=== PATIENT | female | born 1995 | race Caucasian/White ===

== ENCOUNTER 2017-02-02 13:18 | Emergency (ER) | payer BC, OTHER ==
[~2017-02-02] VITALS: Ht 160 cm; Wt 83.0 kg
[2017-02-02 13:19] VITALS: BP 133/90
[2017-02-02] MEDS ORDERED: AUGM875T27 PO (14:38)
== END 2017-02-02 14:50 | disposition home or self-care (01) ==
LOC: M ED 14:33
DX: L03.011 Cellulitis of right finger (principal); T23.021A Burn of unspecified degree of single right finger (nail) except thumb, initial encounter; Y92.89 Other specified places as the place of occurrence of the external cause; Y93.89 Activity, other specified; X58.XXXA Exposure to other specified factors, initial encounter; Y99.9 Unspecified external cause status

== ENCOUNTER 2017-05-29 22:27 | Day surgery (SDC) | payer OTHER, SELFPAY ==
[~2017-05-29] VITALS: Ht 160 cm; Wt 61.3 kg
[~2017-05-29 22:27] MED LIST: AUGM875T28 PO
[2017-05-30] VITALS (7 sets, daily range): BP systolic 97–124; BP diastolic 61–78
[2017-05-30 00:24] LABS: BASO # 0.1 K/mm3 (0.0-0.2); BASO % 0.3 % (0.0-1.0); EOS # 0.3 K/mm3 (0.0-0.50); EOS % 1.7 % (0.0-3.0); LARGE UNSTAINED CELL # 0.1 K/mm3 (0.0-0.4); LARGE UNSTAINED CELL % 0.5 % (0.0-4.0); LYMPH # 2.2 K/mm3 (1.5-6.5); LYMPH % 11.4 % (24.0-44.0); MEAN CORPUSCULAR HEMOGLOBIN 29.7 pg (27.0-33.0); MEAN CORPUSCULAR HGB CONC 34.4 g/dl (32.0-36.5); MEAN CORPUSCULAR VOLUME 86.5 fl (80.0-96.0); MONO # 0.8 K/mm3 (0.0-0.8); MONO % 4.1 % (0.0-5.0); NEUTROPHILS # 15.2 K/mm3 (1.8-7.7); PLATELET COUNT, AUTOMATED 229 k/mm3 (150-450); RED CELL DISTRIBUTION WIDTH 11.9 % (11.5-14.5); WHITE BLOOD COUNT 18.5 K/mm3 (4.0-10.0)
[2017-05-30 00:47] LABS: CONTROL LINE HCG INT CTR LINE PRESENT
[2017-05-30 00:55] LABS: ALBUMIN 4.1 GM/DL (3.2-5.2); ALBUMIN/GLOBULIN RATIO 0.98 (1.00-1.93); ALKALINE PHOSPHATASE 65 U/L (45-117); ALT/SGPT 48 U/L (12-78); AMYLASE 36 U/L (25-115); ANION GAP 4 MEQ/L (8-16); AST/SGOT 26 U/L (15-37); BILIRUBIN,DIRECT < 0.1 MG/DL (0.0-0.2); BILIRUBIN,TOTAL 0.3 MG/DL (0.2-1.0); BLOOD UREA NITROGEN 8 MG/DL (7-18); CALCIUM LEVEL 9.1 MG/DL (8.5-10.1); CARBON DIOXIDE LEVEL 28 MEQ/L (21-32); CHLORIDE LEVEL 108 MEQ/L (98-107); CREATININE FOR GFR 0.66 MG/DL (0.55-1.02); GLOMERULAR FILTRATION RATE > 60.0 (>60); GLUCOSE, FASTING 97 MG/DL (70-105); POTASSIUM SERUM 3.4 MEQ/L (3.5-5.1); SODIUM LEVEL 140 MEQ/L (136-145); TOTAL PROTEIN 8.3 GM/DL (6.4-8.2)
[2017-05-30] MEDS ORDERED: GASTROGRAFIN SOLUTION 30ML (Q9963) As Ordered ONE (01:33)
[2017-05-30] MEDS ORDERED: GASTROGRAFIN SOLUTION 30ML PO ONE (01:35)
[2017-05-30] MEDS ORDERED: GASTROGRAFIN SOLUTION 30ML (Q9963) PO ONE (02:05)
--- NOTE | 2017-05-30 04:30 | REPUSA ---
CLINICAL HISTORY: Abdominal pain. TECHNIQUE: Multiple axial, sagittal and coronal CT images were obtained through the abdomen and pelvi s without administration of IV contrast material. Oral contrast was given. COMMENTS: The appendix is enlarged measuring 1.2 cm. Thickened appendix with fat stranding. Enlarged right ovary. The liver is of uniform attenuation without mass or defect. There is no intra or extrahepatic biliary ductal dilatation. The spleen is normal. The gallbladder is within normal limits. The pancreas is of normal contour and attenuation characteristics. There is no evidence of adrenal mass. The kidneys are normal in size, shape and configuration. No renal or ureteral calculi are identified. There is no hydroureter or hydronephrosis. There is no bowel wall thickening. No evidence for small or large bowel obstruction. There is no evid ence of abdominal ascites or lymphadenopathy. There is no evidence of intrinsic or extrinsic bladder mass. There is no pelvic ascites or lymphadeno ladi. Images of the lung bases show no evidence of pleural or parenchymal mass. There are no pleural effusi ons. The bony structures are free of lytic or blastic lesions. IMPRESSION: Acute appendicitis. No perforation or abscess formation. Enlarged right ovary. No associated acute changes. Thank you for your kind referral of this patient.
[2017-05-30] MEDS ORDERED: NS 1,000 ML IV ONE ×2 (04:45)
[2017-05-30] MEDS ORDERED: PIPERACILLIN/TAZOBACTAM SOD 3.375 GM in D5W MINI-BAG PLUS 50 ML IV ONE ×2 (04:45→11:00)
[2017-05-30] MEDS ORDERED: BUPIVACAINE HCL 0.25% 30 ML VIAL As Ordered ONE (10:41)
[2017-05-30] MEDS ORDERED: BUPIVACAINE/EPIN 0.25% 30 ML VIAL As Ordered ONE (10:42)
[2017-05-30] MEDS ORDERED: ZOSYN 3.375 GM VIAL (J2543) As Ordered ONE (10:51)
[2017-05-30] MEDS ORDERED: fentaNYL 250 MCG/5 ML INJECTION (J3010) As Ordered ONE (10:52)
[2017-05-30] MEDS ORDERED: LIDOCAINE 2% INJ 100 MG/5 ML SDV (FOR ANES.) As Ordered ONE (10:53)
[2017-05-30] MEDS ORDERED: MIDAZOLAM INJ 2 MG/2 ML VIAL (J2250) As Ordered ONE (10:53)
[2017-05-30] MEDS ORDERED: ROCURONIUM BROMIDE 50 MG/5 ML VIAL/SYRINGE As Ordered ONE (10:53)
[2017-05-30] MEDS ORDERED: PROPOFOL 200 MG/20 ML VIAL As Ordered ONE (10:53)
[2017-05-30] MEDS ORDERED: dexameTHASONE 4 MG/ML 1ML VIAL (J1100) As Ordered ONE (11:29)
[2017-05-30] MEDS ORDERED: GLYCOPYRROLATE INJ 0.2 MG/ML 2 ML VIAL As Ordered ONE (11:32)
[2017-05-30] MEDS ORDERED: NEOSTIGMINE 1MG/ML 5 ML SYRINGE (J2710) As Ordered ONE (11:32)
[2017-05-30] MEDS ORDERED: ONDANSETRON 4MG/2ML VIAL (J2405) As Ordered ONE (11:32)
[2017-05-30] MEDS ORDERED: KETOROLAC 60 MG/2 ML VIAL (J1885) As Ordered ONE (11:33)
[2017-05-30] MEDS ORDERED: fentaNYL 100 MCG/2 ML INJECTION (J3010) IV PRN (12:15)
[2017-05-30] MEDS ORDERED: MOM 30ML SUSPENSION UDC PO PRN (12:15)
[2017-05-30] MEDS ORDERED: ACETAMINOPHEN TAB 650MG DOSE (2X325MG) PO PRN (12:15)
[2017-05-30] MEDS ORDERED: LR 1,000 ML IV SCH (12:15)
[2017-05-30] MEDS ORDERED: ONDANSETRON 4MG/2ML VIAL (J2405) IV PRN ×2 (12:15)
[2017-05-30] MEDS ORDERED: MORPHINE 2 MG/ML 1ML SYRINGE IV PRN (12:15)
[2017-05-30] MEDS: LR 1,000 ML IV SCH ×2 (13:30→22:42)
[2017-05-30] MEDS: NORCO, ANEXSIA 5/325MG TABLET (HYDROcodone/ACETAMINOPHEN) PO PRN ×2 (16:43→22:49)
[2017-05-30] MEDS: PIPERACILLIN/TAZOBACTAM SOD 3.375 GM in D5W MINI-BAG PLUS 50 ML IV SCH ×2 (17:26→22:48)
[2017-05-30] MEDS ORDERED: KETOROLAC 30 MG/ML VIAL (J1885) IV PRN (17:30)
[2017-05-30] MEDS ORDERED: SLF 3 ML SYR IV PRN (18:45)
[2017-05-30] MEDS: SENOKOT S TAB PO SCH (20:57)
[2017-05-30] MEDS: SLF 3 ML SYR IV SCH (22:00)
[2017-05-31] VITALS: BP 99/59
[2017-05-31 04:00] VITALS: BP 98/58
[2017-05-31] MEDS: PIPERACILLIN/TAZOBACTAM SOD 3.375 GM in D5W MINI-BAG PLUS 50 ML IV SCH (04:32)
[2017-05-31] MEDS: LR 1,000 ML IV SCH (05:03)
[2017-05-31] MEDS: SLF 3 ML SYR IV SCH (06:00)
[2017-05-31 06:43] LABS: MEAN CORPUSCULAR HEMOGLOBIN 29.9 pg (27.0-33.0); MEAN CORPUSCULAR HGB CONC 34.5 g/dl (32.0-36.5); MEAN CORPUSCULAR VOLUME 86.7 fl (80.0-96.0); RED CELL DISTRIBUTION WIDTH 11.6 % (11.5-14.5); WHITE BLOOD COUNT 7.3 K/mm3 (4.0-10.0)
[2017-05-31 07:20] LABS: ANION GAP 9 MEQ/L (8-16); BLOOD UREA NITROGEN 5 MG/DL (7-18); CALCIUM LEVEL 8.5 MG/DL (8.5-10.1); CARBON DIOXIDE LEVEL 23 MEQ/L (21-32); CHLORIDE LEVEL 110 MEQ/L (98-107); GLOMERULAR FILTRATION RATE > 60.0 (>60); GLUCOSE, FASTING 142 MG/DL (70-105); MAGNESIUM LEVEL 2.1 MG/DL (1.8-2.4); POTASSIUM SERUM 3.6 MEQ/L (3.5-5.1); SODIUM LEVEL 142 MEQ/L (136-145)
[2017-05-31 07:30] VITALS: BP 105/70
[2017-05-31] MEDS ORDERED: SENN1TAB2 PO (08:00)
[2017-05-31] MEDS ORDERED: NORCOTAB PO (08:00)
[2017-05-31] MEDS: SENOKOT S TAB PO SCH (09:00)
--- NOTE | 2017-05-31 11:31 | CR ---
DATE OF CONSULTATION: 05/30/2017 REASON FOR CONSULTATION: Abdominal pain. HISTORY OF PRESENT ILLNESS: The patient is a 22-year-old female who presents with right lower quadrant abdominal pain that started suddenly last evening. She came into the emergency room this morning. Vitals were stable on admission other than a slightly elevated pulse up to 107. She had laboratories of a white count elevated to 18.5 and that was followed up with a CT scan that showed signs and symptoms consistent with acute appendicitis. Therefore, I was called to evaluate. PHYSICAL EXAMINATION: On exam, she has extremely tender in the right lower quadrant. She has had some nausea. No vomiting. No fevers or chills. No change in bowel movements. No problems urinating. The pain started off sort of generalized yesterday afternoon and then localized towards the right lower quadrant in the evening and has not been getting any better. ALLERGIES: None. HOME MEDICATIONS: None. PAST MEDICAL HISTORY: Negative. PAST SURGICAL HISTORY: Negative. SOCIAL HISTORY: Denies any drug, alcohol, tobacco usage. FAMILY HISTORY: Noncontributory. REVIEW OF SYSTEMS: Pertinent positives and negatives as stated in history of present illness. PHYSICAL EXAMINATION: GENERAL: Patient is alert and oriented times three. No acute distress. VITAL SIGNS: Temperature 97.3, pulse 121, respirations 16, blood pressure 123/74, pulse ox 96% on 2 liters nasal cannula. HEENT: Pupils equal round react to light accommodation. HEART: S1, S2. Regular rate and rhythm. LUNGS: Clear to auscultation bilaterally. ABDOMEN: Soft and tender to palpation in the right lower quadrant. Localized guarding. No signs of ventral hernias. EXTREMITIES: No clubbing, cyanosis or edema. LABORATORY DATA: White count 18.5, hemoglobin 15.2, platelets 229, potassium 3.4, creatinine 0.66. IMAGING STUDIES: CT of the abdomen and pelvis with oral contrast shows acute appendicitis. No signs of perforation or abscess. The appendix is dilated at 1.2 cm and thickened with some surrounding fat stranding. ASSESSMENT AND PLAN: The patient is 22-year-old female who presents with signs and symptoms consistent with acute appendicitis. Recommendation is to proceed with laparoscopic, possible open appendectomy. Risks and benefits of the procedure, not limited to, but including bleeding, infection, hernia formation, damage to surrounding structures and need for further surgery were discussed in detail with the patient. Informed consent was obtained and the procedure was planned. Postoperatively, she will be kept in the hospital overnight due to the leukocytosis. She will be kept on IV antibiotics and IV fluids. She can have a regular diet. As long as her white count shows some improvement and she is afebrile overnight, she will be discharged home first thing in the morning.
--- NOTE | 2017-06-01 05:36 | RO ---
DATE OF PROCEDURE: 05/30/2017 PREOPERATIVE DIAGNOSIS: Acute appendicitis. POSTOPERATIVE DIAGNOSIS: Acute appendicitis. PROCEDURE: Laparoscopic appendectomy. SURGEON: Buck Olmstead DO MUSEUM EDUCATOR: None. ANESTHESIA: General. ESTIMATED BLOOD LOSS: 5. COMPLICATION: None. INDICATIONS FOR PROCEDURE: The patient is a 22-year-old female who presents with signs and symptoms consistent with acute appendicitis. Recommendation to proceed with laparoscopic, possible open appendectomy. Risks and benefits of procedure not limited but including bleeding, infection, hernia formation, damage structure, need for further surgery were discussed in detail with the patient. Informed was obtained. Procedure was planned. DESCRIPTION OF PROCEDURE: Patient brought back to operating room #3. After sufficient sedation, the abdomen was sterilely prepped and draped. Next, time-out was done to confirm proper patient and proper procedure. Next, a 5 mm incision made in left lower quadrant. Veress needle was inserted and the abdomen was insufflated to 50 mmHg. Next, Veress needle was removed. A 5 mm Optiview port was used to gain access to the abdomen. Once the abdomen was entered, an 8 mm port was placed infraumbilically and another 5 mm port suprapubically in the midline. The omentum was elevated off of the cecum. The appendix was easily identified and elevated up in the air. The mesoappendix was then taken down using the Enseal all the way to the base of the appendix. The base the appendix was then ligated with two PDS Endoloops and then it was amputated using the Enseal. The appendix was then brought out through the umbilical 8 mm port using a 5 mm EndoCatch bag. The right lower quadrant was examined to confirm hemostasis. Omentum was placed back over top of the area.. Abdomen was desufflated. Skin incisions were closed with #4-0 Vicryl subcuticular sutures. The abdomen was cleaned and dried. Steri-Strips, 4 x 4 and tape were applied, thus ending procedure.
== END 2017-05-31 09:30 | disposition home or self-care (01) ==
LOC: M ED 22:27 → M SDC 05-30 07:30 → M PED 05-30 12:40 → M SDC 05-31 09:30
PROVIDERS: ATTEND Surgery
DX: K35.89 Other acute appendicitis (principal); D72.829 Elevated white blood cell count, unspecified
CPT/HCPCS: 36415; 44970; 74176; 80048; 80076; 81001; 82150; 83690; 83735; 84703; 85025; 85027; 87086; 88304; 96365; 96366; 99284; J1100; J1885; J2250; J2405; J2543; J2710; J3010; Q9963

== ENCOUNTER 2018-05-05 20:09 | Emergency (ER) | payer OTHER, SELFPAY ==
[2018-05-05] MEDS: PENICILLIN V POTASSIUM 500 MG TAB PO (22:23)
[2018-05-05] MEDS: IBUPROFEN 600 MG TAB PO (22:24)
== END 2018-05-05 22:40 | disposition home or self-care (01) ==
LOC: M ED 20:09
DX: K04.7 Periapical abscess without sinus (principal)
CPT/HCPCS: 99283

== ENCOUNTER 2018-07-08 21:31 | Emergency (ER) | payer OTHER ==
[2018-07-08] MEDS: TETRACAINE 0.5% OPHTH SOLN 4ML OD (22:30)
[2018-07-08] MEDS: LISSAMINE GREEN OPHTH 1.5 MG STRIP OD (22:30)
== END 2018-07-08 22:56 | disposition home or self-care (01) ==
LOC: M ED 21:31
DX: H10.9 Unspecified conjunctivitis (principal)
CPT/HCPCS: 99282

== ENCOUNTER 2018-12-09 00:10 | Emergency (ER) | payer OTHER ==
[~2018-12-09] VITALS: Ht 160 cm; Wt 61.4 kg
[~2018-12-09 00:10] MED LIST changes: +CIPR0.3S OD; +IBUP-1022 PO; +NORCOTAB PO; +PENI500T PO; +SENN1TAB2 PO
[2018-12-09 00:11] VITALS: BP 130/85
[2018-12-09] MEDS ORDERED: AMOX875T PO (00:40)
[2018-12-09] MEDS ORDERED: IBUPROFEN 600 MG TAB PO ONE (00:45)
[2018-12-09] MEDS ORDERED: AMOXICILLIN 500 MG CAP PO ONE (00:45)
== END 2018-12-09 00:48 | disposition home or self-care (01) ==
LOC: M ED 00:10
DX: H66.92 Otitis media, unspecified, left ear (principal)

== ENCOUNTER → 2020-08-17 | Outpatient (CLI) | payer OTHER ==
[~2020-08-17] MED LIST changes: +AMOX875T PO; -CIPR0.3S OD; +CIPR0.3S6 OD; +HYDR-3715 PO; -NORCOTAB PO; +SENN-53 PO; -SENN1TAB2 PO
[2020-08-17 17:34] LABS: BASO # 0.1 10^3/uL (0.0-0.2); BASO % 0.6 % (0.0-1.0); EOS # 0.1 10^3/uL (0.0-0.5); EOS % 1.3 % (0.0-3.0); HEMATOCRIT 41.6 % (36.0-47.0); HEMOGLOBIN 13.9 g/dl (12.0-15.5); MEAN CORPUSCULAR HEMOGLOBIN 29.6 pg (27.0-33.0); MEAN CORPUSCULAR HGB CONC 33.4 g/dl (32.0-36.5); MEAN CORPUSCULAR VOLUME 88.7 fl (80.0-96.0); MONO # 0.6 10^3/uL (0.0-0.8); NEUTROPHILS # 4.6 10^3/uL (1.5-8.5); PLATELET COUNT, AUTOMATED 245 10^3/uL (150-450); RED BLOOD COUNT 4.69 10^6/uL (4.00-5.40); WHITE BLOOD COUNT 8.3 10^3/uL (4.0-10.0)
--- NOTE | 2020-08-17 17:50 | ECGEPIP ---
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
[2020-08-17 17:57] LABS: ALBUMIN 3.9 GM/DL (3.2-5.2); ALT/SGPT 41 U/L (12-78); BILIRUBIN,TOTAL 0.2 MG/DL (0.2-1.0); BLOOD UREA NITROGEN 11 MG/DL (7-18); CALCIUM LEVEL 8.9 MG/DL (8.5-10.1); CARBON DIOXIDE LEVEL 29 MEQ/L (21-32); CHLORIDE LEVEL 105 MEQ/L (98-107); CHOLESTEROL LEVEL 212 MG/DL (<200); CHOLESTEROL RISK RATIO 6.235 (<5); CREATININE FOR GFR 0.61 MG/DL (0.55-1.30); FREE THYROXINE INDEX 2.5 % (1.3-4.8); GLOMERULAR FILTRATION RATE > 60.0 (>60); GLUCOSE, FASTING 103 MG/DL (70-100); HDL CHOLESTEROL 34 MG/DL (>40); NON-HDL-C 178 MG/DL; POTASSIUM SERUM 4.2 MEQ/L (3.5-5.1); SODIUM LEVEL 138 MEQ/L (136-145); T UPTAKE 29 % (30-39); THYROXINE (T4) 8.7 UG/DL (4.5-12.0); TOTAL PROTEIN 7.1 GM/DL (6.4-8.2); TRIGLYCERIDES LEVEL 401 MG/DL (<150)
[2020-08-17 17:58] LABS: TOTAL 25(OH) VITAMIN D 9.6 NG/ML (30.0-100.0); VITAMIN B12 LEVEL 498 PG/ML (247-911)
[2020-08-17 18:20] LABS: HEMOGLOBIN A1c 5.2 %
== END ==
LOC: M LAB 16:52
PROVIDERS: ATTEND Nurse Practitioner Psychiatric/Mental Health
DX: F43.12 Post-traumatic stress disorder, chronic (principal); F41.9 Anxiety disorder, unspecified; F33.9 Major depressive disorder, recurrent, unspecified

== ENCOUNTER → 2021-06-18 | Outpatient (REF) ==
--- NOTE | 2021-06-19 05:42 | REP ---
INDICATION: SCOLIOSIS COMPARISON: None. TECHNIQUE: AP, lateral, coned-down views of the lumbar spine. FINDINGS: Levoconvex scoliosis through the lumbar spine of approximately 20 degrees as measured from the superior endplate of L1 to the superior endplate of L5. Sagittal view demonstrates straightening of normal lordosis. Disc spaces are relatively symmetric and maintained. No evidence for acute fracture/compression injury or subluxation. IMPRESSION: 1. No acute fracture / compression injury or subluxation. 2. Levoconvex scoliosis. <Electronically signed by Yakov Arriola > 06/19/21 [id number]
== END ==
LOC: M PLAIMG 13:43
PROVIDERS: ATTEND Internal Medicine
DX: M41.9 Scoliosis, unspecified (principal)

== ENCOUNTER → 2022-07-08 | Outpatient (CLI) | payer OTHER ==
[2022-07-08 17:23] LABS: HCG, SERUM QUALITATIVE POSITIVE (NEGATIVE)
[2022-07-08 17:38] LABS: HCG, SERUM QUANTITATIVE 448 MIU/ML
== END ==
LOC: M WUC 11:24
PROVIDERS: ATTEND Physician Assistant
DX: N91.2 Amenorrhea, unspecified (principal)

== ENCOUNTER 2022-07-29 12:42 | Emergency (ER) | payer OTHER ==
[~2022-07-29] VITALS: Ht 160 cm; Wt 58.2 kg
[2022-07-29 14:23] LABS: BASO # 0.1 10^3/uL (0.0-0.2); BASO % 0.6 % (0.0-1.0); EOS # 0.1 10^3/uL (0.0-0.5); EOS % 1.5 % (0.0-3.0); HEMATOCRIT 41.1 % (36.0-47.0); HEMOGLOBIN 13.6 g/dl (12.0-15.5); LYMPH # 2.8 10^3/uL (1.5-5.0); LYMPH % 34.2 % (24.0-44.0); MEAN CORPUSCULAR HEMOGLOBIN 29.3 pg (27.0-33.0); MEAN CORPUSCULAR HGB CONC 33.1 g/dl (32.0-36.5); MEAN CORPUSCULAR VOLUME 88.6 fl (80.0-96.0); MONO # 0.6 10^3/uL (0.0-0.8); MONO % 7.4 % (2.0-8.0); NEUTROPHILS # 4.6 10^3/uL (1.5-8.5); NEUTROPHILS % 56.1 % (36.0-66.0); PLATELET COUNT, AUTOMATED 242 10^3/uL (150-450); RED BLOOD COUNT 4.64 10^6/uL (4.00-5.40); WHITE BLOOD COUNT 8.1 10^3/uL (4.0-10.0)
[2022-07-29 14:56] LABS: HCG, SERUM QUALITATIVE POSITIVE (NEGATIVE)
[2022-07-29 15:06] LABS: ALBUMIN 3.7 GM/DL (3.2-5.2); ALT/SGPT 30 U/L (12-78); BILIRUBIN,DIRECT < 0.1 MG/DL (0.0-0.2); BILIRUBIN,TOTAL 0.2 MG/DL (0.2-1.0); BLOOD UREA NITROGEN 6 MG/DL (7-18); CARBON DIOXIDE LEVEL 24 MEQ/L (21-32); CHLORIDE LEVEL 109 MEQ/L (98-107); CREATININE FOR GFR 0.48 MG/DL (0.55-1.30); GLOMERULAR FILTRATION RATE > 60.0 (>60); GLUCOSE, FASTING 86 MG/DL (70-100); LIPASE 78 U/L (73-393); POTASSIUM SERUM 4.1 MEQ/L (3.5-5.1); SODIUM LEVEL 138 MEQ/L (136-145); TOTAL PROTEIN 6.9 GM/DL (6.4-8.2)
[2022-07-29 15:45] LABS: HCG, SERUM QUANTITATIVE 44224 MIU/ML
[2022-07-29 16:50] VITALS: BP 119/62
== END 2022-07-29 17:09 | disposition home or self-care (01) ==
LOC: M ED 12:42
DX: O26.891 Other specified pregnancy related conditions, first trimester (principal); R10.2 Pelvic and perineal pain; F17.200 Nicotine dependence, unspecified, uncomplicated; Z3A.01 Less than 8 weeks gestation of pregnancy

== ENCOUNTER → 2022-09-10 | Outpatient (CLI) | payer OTHER ==
[2022-09-10 15:45] LABS: HEMATOCRIT 34.5 % (36.0-47.0); HEMOGLOBIN 11.8 g/dl (12.0-15.5); MEAN CORPUSCULAR HEMOGLOBIN 29.6 pg (27.0-33.0); MEAN CORPUSCULAR HGB CONC 34.2 g/dl (32.0-36.5); MEAN CORPUSCULAR VOLUME 86.7 fl (80.0-96.0); PLATELET COUNT, AUTOMATED 221 10^3/uL (150-450); RED BLOOD COUNT 3.98 10^6/uL (4.00-5.40)
[2022-09-10 17:04] LABS: GC DNA AMPLIFICATION NEGATIVE (NEGATIVE)
[2022-09-10 18:41] LABS: HEPATITIS C VIRUS ABY INDEX 0.1 INDEX (<0.8); HIV 1&2 SCREEN CENTAUR NEGATIVE (NEGATIVE)
== END ==
LOC: M PLALAB 12:01
PROVIDERS: ATTEND Specialist
DX: Z34.81 Encounter for supervision of other normal pregnancy, first trimester (principal); Z3A.00 Weeks of gestation of pregnancy not specified

== ENCOUNTER → 2022-10-02 | Outpatient (CLI) | payer OTHER | LOC: M PLALAB 12:04 | PROVIDERS: ATTEND Advanced Practice Midwife | DX: Z36.0 Encounter for antenatal screening for chromosomal anomalies (principal) ==

== ENCOUNTER → 2022-12-04 | Outpatient (CLI) | payer OTHER ==
[2022-12-04 15:34] LABS: HEMOGLOBIN 11.2 g/dl (12.0-15.5); MEAN CORPUSCULAR HEMOGLOBIN 31.1 pg (27.0-33.0); MEAN CORPUSCULAR HGB CONC 32.9 g/dl (32.0-36.5); MEAN CORPUSCULAR VOLUME 94.4 fl (80.0-96.0); PLATELET COUNT, AUTOMATED 184 10^3/uL (150-450)
[2022-12-04 16:55] LABS: GC DNA AMPLIFICATION NEGATIVE (NEGATIVE)
== END ==
LOC: M PLALAB 13:32
PROVIDERS: ATTEND Specialist
DX: Z34.02 Encounter for supervision of normal first pregnancy, second trimester (principal); Z3A.00 Weeks of gestation of pregnancy not specified

== ENCOUNTER → 2022-12-26 | Outpatient (CLI) | payer OTHER | LOC: M WHC 09:02 | PROVIDERS: ATTEND Advanced Practice Midwife | DX: O44.20 Partial placenta previa NOS or without hemorrhage, unspecified trimester (principal); Z3A.30 30 weeks gestation of pregnancy ==

== ENCOUNTER → 2023-02-05 | Outpatient (REF) | payer OTHER ==
[~2023-02-05] MED LIST changes: +CIPR0.3S37 OD; -CIPR0.3S6 OD
== END ==
LOC: M PLALAB 10:50
PROVIDERS: ATTEND Advanced Practice Midwife
DX: Z36.85 Encounter for antenatal screening for Streptococcus B (principal)

== ENCOUNTER 2023-03-11 20:30 | Inpatient (IN) | payer OTHER ==
[~2023-03-11] VITALS: Ht 160 cm; Wt 72.1 kg
[2023-03-11] MEDS ORDERED: METHYLERGONOVINE MALEATE 0.2MG/ML 1ML VIAL IM PRN (20:40)
[2023-03-11] MEDS ORDERED: LIDOCAINE 1% MDV 20ML VIAL INFIL PRN (20:40)
[2023-03-11] MEDS ORDERED: OXYTOCIN INJ 10UNITS/ML 1ML VIAL IM PRN (20:40)
[2023-03-11] MEDS ORDERED: CARBOPROST TROMETHAMINE 250 MCG/ML AMP IM PRN (20:40)
[2023-03-11] MEDS ORDERED: TRANEXAMIC ACID INJection 1,000 MG in NS 100 ML IV PRN (20:40)
[2023-03-11] MEDS ORDERED: OXYTOCIN DRIP 30 UNITS in IV 1 EA IV PRN ×4 (20:40)
[2023-03-11 21:00] VITALS: BP 137/85
[2023-03-11 21:39] VITALS: BP 132/87
[2023-03-11] MEDS: miSOPROStol 50MCG 1/2 TABLET PO SCH (21:39)
[2023-03-11 21:42] LABS: HEMATOCRIT 36.8 % (36.0-47.0); HEMOGLOBIN 12.7 g/dl (12.0-15.5); MEAN CORPUSCULAR HEMOGLOBIN 31.1 pg (27.0-33.0); MEAN CORPUSCULAR HGB CONC 34.5 g/dl (32.0-36.5); MEAN CORPUSCULAR VOLUME 90.2 fl (80.0-96.0); PLATELET COUNT, AUTOMATED 150 10^3/uL (150-450); RED BLOOD COUNT 4.08 10^6/uL (4.00-5.40); WHITE BLOOD COUNT 9.2 10^3/uL (4.0-10.0)
[2023-03-11] MEDS ORDERED: PRENTAB9 PO (21:42)
[2023-03-11] MEDS ORDERED: BUSP10TA PO (21:43)
[2023-03-11] MEDS ORDERED: HOME MED LIST COMPLETE! XX SCH (21:45)
[2023-03-11 22:52] VITALS: BP 136/93
[2023-03-12] VITALS (23 sets, daily range): BP systolic 107–135; BP diastolic 63–85
[2023-03-12] MEDS: miSOPROStol 50MCG 1/2 TABLET PO SCH ×3 (01:49→09:50)
[2023-03-12] MEDS: OXYTOCIN DRIP 30 UNITS in IV 1 EA IV SCH (14:39)
[2023-03-12] MEDS ORDERED: CALCIUM CARBONATE 500 MG CHEW U/D PO ONE (15:20)
[2023-03-12] MEDS: busPIRone 10 MG TAB PO SCH (21:00)
[2023-03-12] MEDS: LR 1,000 ML IV SCH ×2 (22:15→22:46)
[2023-03-12] MEDS ORDERED: PROMETHAZINE 25MG/ML 1ML VIAL IV ONE (23:10)
[2023-03-12] MEDS ORDERED: NALBUPHINE HCL 10 MG/ML 1ML AMP IV PRN (23:10)
[2023-03-13] VITALS (49 sets, daily range): BP systolic 99–134; BP diastolic 54–83
[2023-03-13] MEDS: LR 1,000 ML IV SCH ×3 (05:40→20:57)
[2023-03-13] MEDS ORDERED: diphenhydrAMINE 50MG/ML VIAL IV PRN (06:15)
[2023-03-13] MEDS ORDERED: EPIDURAL/PCA KEYS XX PRN (06:15)
[2023-03-13] MEDS ORDERED: ePHEDrine SULFATE 25 MG/5 ML(5MG/ML) SYRINGE IVP PRN (06:15)
[2023-03-13] MEDS ORDERED: ONDANSETRON 4MG 2ML VIAL IV PRN (06:15)
[2023-03-13] MEDS ORDERED: NALOXONE INJ 0.4MG/1ML VIAL IV PRN (06:15)
[2023-03-13] MEDS: FENTANYL/ROPIVACAINE/NACL BAG 100 ML EPIDURAL SCH ×3 (06:48→23:14)
[2023-03-13] MEDS: LR 500 ML IV PRN (06:57)
[2023-03-13] MEDS: CALCIUM CARBONATE 500 MG CHEW U/D PO PRN ×2 (07:43→17:41)
[2023-03-13] MEDS: busPIRone 10 MG TAB PO SCH ×2 (09:00→21:00)
[2023-03-13] MEDS: OXYTOCIN DRIP 30 UNITS in IV 1 EA IV SCH (10:33)
[2023-03-14] VITALS (37 sets, daily range): BP systolic 51–153; BP diastolic 29–88
[2023-03-14] MEDS ORDERED: AZITHROMYCIN INJ 500 MG, VIAL MATE ADAPTER 1 EACH in NS 250 ML IV ONE (01:45)
[2023-03-14] MEDS ORDERED: BICITRA 30ML SOLN UDC PO ONE (01:45)
[2023-03-14] MEDS ORDERED: ceFAZolin SOD 2 GM in IV 1 EA IV ONE (01:45)
[2023-03-14] MEDS: LR 500 ML IV PRN (02:05)
[2023-03-14] MEDS ORDERED: KETOROLAC 60MG 2ML VIAL As Ordered ONE (02:27)
[2023-03-14] MEDS ORDERED: MORPHINE PRES-FREE INJ 10 MG/10 ML VIAL As Ordered ONE (02:27)
[2023-03-14] MEDS ORDERED: ONDANSETRON 4MG 2ML VIAL As Ordered ONE ×2 (02:27→05:19)
[2023-03-14] MEDS ORDERED: LIDOCAINE 2% W/EPINEPHRINE 20ML VIAL **PRES FREE As Ordered ONE (02:27)
[2023-03-14] MEDS ORDERED: ePHEDrine SULFATE 25 MG/5 ML(5MG/ML) SYRINGE As Ordered ONE ×2 (02:48→06:58)
[2023-03-14 02:52] LABS: CORD GAS ABE V -6.1; CORD GAS HCO3 V 19.5 MMOL/L; CORD GAS O2 SAT V 77.6 %; CORD GAS PCO2 V 39.1 mmHg; CORD GAS PH V 7.315 UNITS; CORD GAS PO2 V 33.6 mmHg; CORD GAS SBC V 19.1 MMOL/L; CORD GAS TCO2 V 20.7 MMOL/L
[2023-03-14] MEDS ORDERED: PHENYLephrine 500MCG 5ML (100MCG/ML) SYRINGE As Ordered ONE ×2 (02:54→06:58)
[2023-03-14 02:55] LABS: CORD GAS ABE A -7.2; CORD GAS HCO3 A 19.2 MMOL/L; CORD GAS O2 SAT A 84.3 %; CORD GAS PCO2 A 41.5 mmHg; CORD GAS PH A 7.282 UNITS; CORD GAS PO2 A 41.3 mmHg; CORD GAS SBC A 18.4 MMOL/L; CORD GAS TCO2 A 20.4 MMOL/L
[2023-03-14] MEDS ORDERED: OXYTOCIN 30UNITS IN 0.9% NaCl 500ML IV BAG As Ordered ONE ×2 (02:56→04:35)
[2023-03-14] MEDS ORDERED: SIMETHICONE 80MG CHEW TAB PO PRN (03:15)
[2023-03-14] MEDS ORDERED: PERCOCET 5MG/325MG TAB PO PRN ×2 (03:15)
[2023-03-14] MEDS ORDERED: RHOGAM 300MCG (1500IU) INJ IM SCH (03:15)
[2023-03-14] MEDS ORDERED: DOCUSATE SODIUM 100MG CAPSULE PO PRN (03:15)
[2023-03-14] MEDS: LR 1,000 ML IV SCH ×2 (04:00→10:47)
[2023-03-14] MEDS ORDERED: TRANEXAMIC ACID 100 MG/ML 10ML VIAL As Ordered ONE ×3 (04:04→08:36)
[2023-03-14] MEDS: OXYTOCIN DRIP 30 UNITS in IV 1 EA IV SCH ×2 (04:10→04:40)
[2023-03-14 04:40] LABS: HEMATOCRIT 22.3 % (36.0-47.0); HEMOGLOBIN 7.4 g/dl (12.0-15.5); MEAN CORPUSCULAR HEMOGLOBIN 31.5 pg (27.0-33.0); MEAN CORPUSCULAR HGB CONC 33.2 g/dl (32.0-36.5); MEAN CORPUSCULAR VOLUME 94.9 fl (80.0-96.0); PLATELET COUNT, AUTOMATED 114 10^3/uL (150-450); RED BLOOD COUNT 2.35 10^6/uL (4.00-5.40); WHITE BLOOD COUNT 19.8 10^3/uL (4.0-10.0)
[2023-03-14 04:51] LABS: INR 1.22; PROTHROMBIN TIME 15.7 SECONDS (12.5-14.5)
[2023-03-14 04:52] LABS: PARTIAL THROMBOPLASTIN TIME 28.6 SECONDS (24.8-34.2)
[2023-03-14] MEDS ORDERED: fentaNYL 100 MCG/2 ML INJECTION As Ordered ONE (05:17)
[2023-03-14] MEDS ORDERED: MIDAZOLAM INJ 2MG/2ML VIAL As Ordered ONE ×2 (05:17→10:03)
[2023-03-14] MEDS ORDERED: ROCURONIUM BROMIDE 50MG/5ML VIAL As Ordered ONE ×2 (05:18→07:45)
[2023-03-14] MEDS ORDERED: LIDOCAINE 2% 100MG/5ML SDV (FOR ANES.) As Ordered ONE (05:18)
[2023-03-14] MEDS ORDERED: propofoL 200 MG/20 ML VIAL As Ordered ONE (05:18)
[2023-03-14] MEDS ORDERED: METOCLOPRAMIDE INJ 10MG/2ML VIAL As Ordered ONE (05:19)
[2023-03-14] MEDS ORDERED: ceFAZolin 2 GM/D5W 50 ML IV BAG As Ordered ONE (05:40)
[2023-03-14] MEDS ORDERED: SLF 3 ML SYR IV SCH (06:00)
[2023-03-14] MEDS ORDERED: fentaNYL 100 MCG/2 ML INJECTION IV PRN ×2 (06:15→10:35)
[2023-03-14] MEDS ORDERED: METOCLOPRAMIDE INJ 10MG/2ML VIAL IV PRN (06:15)
[2023-03-14] MEDS ORDERED: **NOTE PATIENT COMMENT** MISC XX SCH (06:15)
[2023-03-14] MEDS ORDERED: LR 1,000 ML IV SCH (06:15)
[2023-03-14] MEDS ORDERED: diphenhydrAMINE 50MG/ML VIAL IV PRN (06:15)
[2023-03-14] MEDS ORDERED: ONDANSETRON 4MG 2ML VIAL IV PRN (06:15)
[2023-03-14] MEDS ORDERED: oxyCODONE 5MG TAB PO PRN (06:15)
[2023-03-14] MEDS ORDERED: NALOXONE INJ 0.4MG/1ML VIAL IV PRN ×2 (06:15)
[2023-03-14] MEDS ORDERED: PHENYLEPHRINE 10MG/ML 1ML VIAL As Ordered ONE (06:19)
[2023-03-14] MEDS ORDERED: VASOPRESSIN INJ 20UNITS/ML 1ML VIAL As Ordered ONE ×2 (06:44→14:56)
[2023-03-14] MEDS ORDERED: HYDROmorphone HCL 2MG/ML 1ML VIAL As Ordered ONE (07:35)
[2023-03-14] MEDS ORDERED: SILVER SULFADIAZINE 1% CR 50 GM JAR As Ordered ONE (07:55)
[2023-03-14] MEDS ORDERED: KETOROLAC 30 MG/ML 1ML VIAL IV SCH (09:00)
[2023-03-14] MEDS ORDERED: PRENATAL VITAMINS CHEWABLE TABLET PO SCH (09:00)
[2023-03-14] MEDS ORDERED: PANTOPRAZOLE 40MG VIAL IV SCH (09:00)
[2023-03-14] MEDS ORDERED: LACRILUBE (AKWA TEARS) OPHTH OINT 3.5GM As Ordered ONE (09:23)
[2023-03-14] MEDS ORDERED: MIDAZOLAM INJ 2MG/2ML VIAL IV STA (10:03)
[2023-03-14] MEDS ORDERED: FENTANYL DRIP LOCK BOX KEY 1 EACH XX PRN (10:05)
[2023-03-14] MEDS ORDERED: NOREPINEPHRINE 4MG IN D5 250ML 4 MG in IV 1 EA IV SCH ×2 (10:10)
[2023-03-14 10:15] LABS: ABG HCO3 17.3 MMOL/L (22.0-26.0); ABG O2 SATURATION 97.7 % (95.0-99.0); ABG PARTIAL PRESSURE O2 105.9 mmHg (75.0-100.0); ABG STANDARD HCO3 17.1 MMOL/L. (22.0-26.0); ABG TOTAL CO2 18.5 MMOL/L (22.0-29.0); ABG pH (ARTERIAL) 7.264 UNITS (7.350-7.450)
[2023-03-14 10:23] LABS: HEMATOCRIT 25.2 % (36.0-47.0); HEMOGLOBIN 8.6 g/dl (12.0-15.5); MEAN CORPUSCULAR HGB CONC 34.1 g/dl (32.0-36.5); MEAN CORPUSCULAR VOLUME 87.8 fl (80.0-96.0); RED BLOOD COUNT 2.87 10^6/uL (4.00-5.40); WHITE BLOOD COUNT 12.6 10^3/uL (4.0-10.0)
[2023-03-14 10:24] LABS: PLATELET COUNT, AUTOMATED 76 10^3/uL (150-450)
[2023-03-14] MEDS ORDERED: fentaNYL CITRATE/NaCl 1,000 MCG in IV 1 EA IV SCH (10:30)
[2023-03-14] MEDS ORDERED: MIDAZOLAM 100MG/100ML-0.9%NACL 100 MG in IV 1 EA IV SCH (10:30)
[2023-03-14] MEDS: MIDAZOLAM INJ 2MG/2ML VIAL IV PRN ×2 (10:35→14:12)
[2023-03-14 10:40] LABS: INR 1.62; PROTHROMBIN TIME 19.5 SECONDS (12.5-14.5)
[2023-03-14 10:41] LABS: PARTIAL THROMBOPLASTIN TIME 37.1 SECONDS (24.8-34.2)
[2023-03-14 10:44] LABS: D-DIMER QUANT 543.27 ng/ml (<500)
[2023-03-14 10:55] LABS: ALBUMIN 1.6 G/DL (3.2-5.2); ALKALINE PHOSPHATASE 39 U/L (46-116); ALT/SGPT 10 U/L (7.0-40); AST/SGOT 21 U/L (<34); BILIRUBIN,TOTAL 2.6 MG/DL (0.3-1.2); BLOOD UREA NITROGEN 11 MG/DL (9-23); CARBON DIOXIDE LEVEL 18 MMOL/L (20-31); CHLORIDE LEVEL 114 MMOL/L (98-107); GLOMERULAR FILTRATION RATE > 60.0 (>60); GLUCOSE, FASTING 135 MG/DL (60-100); MAGNESIUM LEVEL 0.9 MG/DL (1.8-2.4); POTASSIUM SERUM 5.8 MMOL/L (3.5-5.1); SODIUM LEVEL 139 MMOL/L (136-145); TOTAL PROTEIN 2.7 G/DL (5.7-8.2)
[2023-03-14] MEDS ORDERED: HumuLIN R (REGULAR) INSULIN (NovoLIN R) **100U/ML** PER UNIT IV STA (11:00)
[2023-03-14] MEDS ORDERED: PATIROMER SORBITEX CALCIUM 8.4 GM POWDER PACKET (VELTASSA) PO STA (11:00)
[2023-03-14] MEDS ORDERED: DEXTROSE 50% 50ML SYRINGE IV STA (11:00)
[2023-03-14] MEDS: MAG SULF 1GM/100ML (MAG RUN) 1 GM in IV 1 EA IV SCH ×2 (11:34→12:42)
[2023-03-14] MEDS ORDERED: CALCIUM GLUCONATE 1,000 MG in D5W MINI-BAG PLUS 100 ML IV SCH (12:00)
[2023-03-14 13:51] LABS: ABG BASE EXCESS -7.5 (-2.0-2.0); ABG HCO3 18.4 MMOL/L (22.0-26.0); ABG O2 SATURATION 98.6 % (95.0-99.0); ABG PARTIAL PRESSURE CO2 38.6 mmHg (35.0-45.0); ABG PARTIAL PRESSURE O2 215.9 mmHg (75.0-100.0); ABG STANDARD HCO3 18.3 MMOL/L. (22.0-26.0); ABG TOTAL CO2 19.5 MMOL/L (22.0-29.0); ABG pH (ARTERIAL) 7.295 UNITS (7.350-7.450)
[2023-03-14 13:58] LABS: MEAN CORPUSCULAR HEMOGLOBIN 29.7 pg (27.0-33.0); MEAN CORPUSCULAR HGB CONC 34.2 g/dl (32.0-36.5); MEAN CORPUSCULAR VOLUME 86.9 fl (80.0-96.0); RED BLOOD COUNT 2.29 10^6/uL (4.00-5.40); WHITE BLOOD COUNT 8.2 10^3/uL (4.0-10.0)
[2023-03-14 14:00] LABS: HEMATOCRIT 19.9 % (36.0-47.0); HEMOGLOBIN 6.8 g/dl (12.0-15.5); PLATELET COUNT, AUTOMATED 68 10^3/uL (150-450)
[2023-03-14] MEDS ORDERED: ceFAZolin SOD 2 GM in IV 1 EA IV SCH (14:00)
[2023-03-14 14:24] LABS: BLOOD UREA NITROGEN 10 MG/DL (9-23); CALCIUM LEVEL 5.8 MG/DL (8.5-10.1); CARBON DIOXIDE LEVEL 18 MMOL/L (20-31); CHLORIDE LEVEL 112 MMOL/L (98-107); CREATININE FOR GFR 0.62 MG/DL (0.55-1.30); GLOMERULAR FILTRATION RATE > 60.0 (>60); GLUCOSE, FASTING 138 MG/DL (60-100); MAGNESIUM LEVEL 1.9 MG/DL (1.8-2.4); POTASSIUM SERUM 4.5 MMOL/L (3.5-5.1); SODIUM LEVEL 138 MMOL/L (136-145)
[2023-03-14] MEDS ORDERED: VASOPRESSIN INJ 20 UNITS in NS 499 ML IV SCH (15:15)
[2023-03-15] MEDS ORDERED: IBUPROFEN 800 MG TAB PO SCH (05:00)
[2023-03-16] MEDS ORDERED: MEASLES,MUMPS,RUBELLA VACCINE INJ (MMR-II) SC.IMMUN ONE (09:00)
== END 2023-03-14 15:17 | disposition short-term general hospital (02) | DRG 540 ==
LOC: M LDI 20:30 → M ICU 03-14 09:42
PROVIDERS: ADMIT Advanced Practice Midwife; ATTEND Internal Medicine Pulmonary Disease
PROC: 3E033VJ Introduction of Other Hormone into Peripheral Vein, Percutaneous Approach (ICD-10-PCS; 2023-03-11)
PROC: 0UT90ZL Resection of Uterus, Supracervical, Open Approach (ICD-10-PCS; 2023-03-14)
PROC: 0UT00ZZ Resection of Right Ovary, Open Approach (ICD-10-PCS; 2023-03-14)
PROC: 0UT50ZZ Resection of Right Fallopian Tube, Open Approach (ICD-10-PCS; 2023-03-14)
PROC: 30233N1 Transfusion of Nonautologous Red Blood Cells into Peripheral Vein, Percutaneous Approach (ICD-10-PCS; 2023-03-14)
PROC: 30233K1 Transfusion of Nonautologous Frozen Plasma into Peripheral Vein, Percutaneous Approach (ICD-10-PCS; 2023-03-14)
PROC: 30233R1 Transfusion of Nonautologous Platelets into Peripheral Vein, Percutaneous Approach (ICD-10-PCS; 2023-03-14)
PROC: 5A1935Z Respiratory Ventilation, Less than 24 Consecutive Hours (ICD-10-PCS; 2023-03-14)
PROC: 10D00Z1 Extraction of Products of Conception, Low, Open Approach (ICD-10-PCS; principal; 2023-03-14 05:23)
DX: O48.0 Post-term pregnancy (principal); R57.8 Other shock; J96.00 Acute respiratory failure, unspecified whether with hypoxia or hypercapnia; D62 Acute posthemorrhagic anemia; O72.1 Other immediate postpartum hemorrhage; Z37.0 Single live birth; Z3A.41 41 weeks gestation of pregnancy; Z87.891 Personal history of nicotine dependence; O32.4XX0 Maternal care for high head at term, not applicable or unspecified; O63.1 Prolonged second stage (of labor); O99.03 Anemia complicating the puerperium; O99.53 Diseases of the respiratory system complicating the puerperium

== ENCOUNTER 2023-03-28 18:20 | Emergency (ER) | payer OTHER ==
[~2023-03-28] VITALS: Ht 160 cm; Wt 61.5 kg
[~2023-03-28 18:20] MED LIST changes: +BUSP10TA PO; +PRENTAB9 PO
[2023-03-28 18:21] VITALS: TEMP 97.6
[2023-03-28] MEDS ORDERED: OXYC-517 PO (18:30)
[2023-03-28] MEDS ORDERED: IBUP200T46 PO (18:30)
[2023-03-28 21:25] VITALS: BP 141/67; O2SAT 98
== END 2023-03-28 21:24 | disposition left against medical advice (07) ==
LOC: M ED 18:20
DX: I73.00 Raynaud's syndrome without gangrene (principal); M87.04 Idiopathic aseptic necrosis of hand and fingers; R20.2 Paresthesia of skin; F41.9 Anxiety disorder, unspecified; Z79.899 Other long term (current) drug therapy; Z79.810 Long term (current) use of selective estrogen receptor modulators (SERMs); Z53.9 Procedure and treatment not carried out, unspecified reason

== ENCOUNTER → 2023-04-08 | Outpatient (CLI) | payer OTHER ==
[~2023-04-08] MED LIST changes: +IBUP200T46 PO; +OXYC-517 PO
== END ==
LOC: M SOG 11:37
PROVIDERS: ATTEND Physician Assistant
DX: Z53.9 Procedure and treatment not carried out, unspecified reason (principal)

== ENCOUNTER → 2023-06-02 | Outpatient (CLI) | payer OTHER ==
[~2023-06-02] MED LIST changes: +AMLO1TAB24 PO; +CEFA500C2 PO; +TRAZ-257 PO
[2023-06-02 16:00] LABS: BASO % 0.5 % (0.0-1.0); EOS # 0.2 10^3/uL (0.0-0.5); EOS % 1.9 % (0.0-3.0); HEMATOCRIT 34.7 % (36.0-47.0); HEMOGLOBIN 11.7 g/dl (12.0-15.5); LYMPH # 2.2 10^3/uL (1.5-5.0); LYMPH % 26.8 % (24.0-44.0); MEAN CORPUSCULAR HEMOGLOBIN 29.8 pg (27.0-33.0); MEAN CORPUSCULAR HGB CONC 33.7 g/dl (32.0-36.5); MEAN CORPUSCULAR VOLUME 88.3 fl (80.0-96.0); MONO # 0.7 10^3/uL (0.0-0.8); MONO % 8.4 % (2.0-8.0); NEUTROPHILS # 5.1 10^3/uL (1.5-8.5); PLATELET COUNT, AUTOMATED 400 10^3/uL (150-450); RED BLOOD COUNT 3.93 10^6/uL (4.00-5.40); WHITE BLOOD COUNT 8.3 10^3/uL (4.0-10.0)
[2023-06-02 16:53] LABS: ERYTHROCYTE SEDIMENTATION RATE 60 mm/hr (0-20)
== END ==
LOC: M PLALAB 11:52
PROVIDERS: ATTEND Orthopaedic Surgery Hand Surgery
DX: I73.01 Raynaud's syndrome with gangrene (principal)

== ENCOUNTER 2023-06-10 11:30 | Day surgery (SDC) | payer OTHER ==
[~2023-06-10] VITALS: Ht 160 cm; Wt 55.2 kg
[~2023-06-10 11:30] MED LIST changes: +ceFAZolin SOD 2 GM in IV 1 EA IV ONE
[2023-06-10] MEDS ORDERED: LR 1,000 ML IV SCH (11:40)
[2023-06-10] MEDS ORDERED: propofoL 200 MG/20 ML VIAL As Ordered ONE (13:11)
[2023-06-10] MEDS ORDERED: ONDANSETRON 4MG 2ML VIAL As Ordered ONE (13:11)
[2023-06-10] MEDS ORDERED: LIDOCAINE 2% 100MG/5ML SDV (FOR ANES.) As Ordered ONE (13:11)
[2023-06-10] MEDS ORDERED: fentaNYL 100 MCG/2 ML INJECTION As Ordered ONE ×2 (13:11→15:45)
[2023-06-10] MEDS ORDERED: MIDAZOLAM INJ 2MG/2ML VIAL As Ordered ONE (13:11)
[2023-06-10] MEDS ORDERED: ACETAMINOPHEN 1000MG 100ML IV BAG As Ordered ONE (14:50)
[2023-06-10] MEDS ORDERED: BACITRACIN OINTMENT 30GM TUBE As Ordered ONE (14:51)
[2023-06-10] MEDS ORDERED: ESMOLOL INJ 100MG/10ML VIAL As Ordered ONE (15:36)
[2023-06-10] MEDS ORDERED: KETOROLAC 60MG 2ML VIAL As Ordered ONE (16:18)
[2023-06-10] MEDS ORDERED: fentaNYL 100 MCG/2 ML INJECTION IV PRN (16:25)
[2023-06-10] MEDS ORDERED: oxyCODONE 5MG TAB PO PRN (16:25)
[2023-06-10] MEDS ORDERED: HYDROMORPHONE HCL 0.5 MG/ 0.5 ML SYRINGE IV PRN (16:25)
[2023-06-10] MEDS ORDERED: ONDANSETRON 4MG 2ML VIAL IV PRN (16:25)
[2023-06-10] MEDS ORDERED: MEPERIDINE 25 MG/ML 1ML VIAL IV PRN (16:25)
[2023-06-10] MEDS ORDERED: CEFA500C2 PO (16:45)
[2023-06-10 17:20] VITALS: BP 111/76; TEMP 97.8; O2SAT 98
== END 2023-06-10 17:38 | disposition home or self-care (01) ==
LOC: M SDC 11:30
PROVIDERS: ATTEND Orthopaedic Surgery Hand Surgery
DX: I73.01 Raynaud's syndrome with gangrene (principal); F41.9 Anxiety disorder, unspecified; F32.A Depression, unspecified; Z79.899 Other long term (current) drug therapy
CPT/HCPCS: 26951; 88305; J0131; J0665; J0690; J1100; J1805; J1885; J2250; J2405; J3010

== ENCOUNTER → 2024-10-26 | Outpatient (CLI) | payer OTHER ==
[~2024-10-26] MED LIST changes: -ceFAZolin SOD 2 GM in IV 1 EA IV ONE
[2024-10-26 12:54] LABS: ALBUMIN 3.8 G/DL (3.2-5.2); ALKALINE PHOSPHATASE 59 U/L (35-104); ALT/SGPT 99 U/L (7.0-40); AST/SGOT 54 U/L (<34); BILIRUBIN,TOTAL 0.4 MG/DL (0.3-1.2); BLOOD UREA NITROGEN 8 MG/DL (9-23); CALCIUM LEVEL 10.8 MG/DL (8.5-10.1); CARBON DIOXIDE LEVEL 27 MMOL/L (20-31); CHLORIDE LEVEL 104 MMOL/L (98-107); CHOLESTEROL LEVEL 240 MG/DL (<200); CHOLESTEROL RISK RATIO 5.85 (<5); GLOMERULAR FILTRATION RATE > 60.0 (>60); GLUCOSE, FASTING 97 MG/DL (60-100); LDL CHOLESTEROL 155.2 MG/DL (<100); MAGNESIUM LEVEL 1.8 MG/DL (1.8-2.4); POTASSIUM SERUM 4.2 MMOL/L (3.5-5.1); SODIUM LEVEL 139 MMOL/L (136-145); TOTAL PROTEIN 7.3 G/DL (5.7-8.2); TRIGLYCERIDES LEVEL 219 MG/DL (<150)
[2024-10-26 12:55] LABS: THYROID STIMULATING HORMONE 11.139 uIU/ML (0.55-4.78)
[2024-10-26 12:56] LABS: TOTAL 25(OH) VITAMIN D 6.9 NG/ML (20.0-100.0)
[2024-10-26 13:12] LABS: BASO # 0.1 10^3/uL (0.0-0.2); BASO % 0.6 % (0.0-1.0); EOS # 0.2 10^3/uL (0.0-0.5); EOS % 2.5 % (0.0-3.0); HEMATOCRIT 43.6 % (36.0-47.0); HEMOGLOBIN 14.7 g/dl (12.0-15.5); LYMPH # 2.5 10^3/uL (1.5-5.0); LYMPH % 31.2 % (24.0-44.0); MEAN CORPUSCULAR HEMOGLOBIN 31.3 pg (27.0-33.0); MEAN CORPUSCULAR HGB CONC 33.7 g/dl (32.0-36.5); MEAN CORPUSCULAR VOLUME 92.8 fl (80.0-96.0); MONO # 0.4 10^3/uL (0.0-0.8); MONO % 5.3 % (2.0-8.0); NEUTROPHILS # 4.8 10^3/uL (1.5-8.5); NEUTROPHILS % 60.3 % (36.0-66.0); PLATELET COUNT, AUTOMATED 232 10^3/uL (150-450)
== END ==
LOC: M EKG 11:55
PROVIDERS: ATTEND Nurse Practitioner Psychiatric/Mental Health
DX: F43.20 Adjustment disorder, unspecified (principal)

== ENCOUNTER → 2024-12-12 | Outpatient (REF) | payer OTHER | LOC: M SFHCPLAZ 15:04 | PROVIDERS: ATTEND Student in an Organized Health Care Education/Training Program | DX: E03.8 Other specified hypothyroidism (principal); E78.00 Pure hypercholesterolemia, unspecified ==

== ENCOUNTER → 2024-12-13 | Outpatient (CLI) | payer OTHER ==
[2024-12-13 11:32] LABS: CHOLESTEROL RISK RATIO 7.01 (<5); HDL CHOLESTEROL 28.5 MG/DL (>40); LDL CHOLESTEROL 100.9 MG/DL (<100); NON-HDL-C 171.5 MG/DL
[2024-12-13 11:34] LABS: FREE T4 1.11 NG/DL (0.89-1.76)
[2024-12-13 11:35] LABS: THYROID STIMULATING HORMONE 7.816 uIU/ML (0.55-4.78)
== END ==
LOC: M PLALAB 09:04
DX: R79.89 Other specified abnormal findings of blood chemistry (principal); E78.00 Pure hypercholesterolemia, unspecified